=== PATIENT | male | born 1930 | race Caucasian/White ===

== ENCOUNTER 2019-02-22 22:26 | Emergency (ER) | payer MEDICARE, OTHER ==
[~2019-02-22 22:26] MED LIST: ISOVUE-370 76%-LOCM 1 ML ONE
[2019-02-22 22:50] LABS: Bilirubin Negative (Negative); Blood, Urine Large (Negative); Clarity CLOUDY (Clear); Glucose, Urine (Dipstick) Negative (Negative); Leukocyte Small (Negative); Nitrite Negative (Negative); Protein, Urine (Dipstick) 100 mg/dL (Neg-Trace); pH, Urine 5.5 (5.0-9.0)
[2019-02-22 22:51] LABS: #Basophils 0.1 thou/uL (0.0-0.2); #Eosinphils 0.3 thou/uL (0.0-0.7); #Lymphocytes 3.4 thou/uL (1.20-3.40); #Monocytes 0.7 thou/uL (0.11-0.59); #Neutrophils 3.9 thou/uL (1.40-6.50); %Basophils 1.2 % (0.0-1.0); %Eosinophils 3.1 % (0.0-10.0); %Lymphocytes 40.1 % (21.0-51.0); %Monocytes 8.8 % (0.0-10.0); %Neutrophils 46.8 % (42.0-75.0); Hemoglobin 11.8 g/dL (14.0-18.0); Mean Corpuscular HGB CONC 33.4 g/dL (32.0-36.0); Mean Corpuscular Hemoglobin 31.6 pg (27.0-31.0); Mean Corpuscular Volume 94.4 fL (78.0-98.0); Mean Platelet Volume 8.5 fL (7.4-10.4); Platelet Count 168 thou/uL (130-400); Red Blood Cell (RBC) Count 3.74 mill/uL (4.70-6.10); White Blood Cell (WBC) Count 8.4 thou/uL (4.8-10.8)
[2019-02-22 22:51] LABS: Bacteria/HPF None Seen HPF (None Seen); Hyaline Casts/LPF 4-6 HYALINE CAST LPF (0-3 Hyaline); Pathc Cast-AUWi Flag 1.07 (0-2.49); RBC/HPF GREATER THAN 50-TNTC HPF (0-3); Squamous Epithelial 0-3 HPF (0-3)
[2019-02-22 23:15] LABS: ALT (SGPT) 32 U/L (8-55); AST (SGOT) 32 U/L (5-34); Albumin 4.1 g/dL (3.4-4.8); Alkaline Phosphatase 55 U/L (40-150); Anion Gap 14 mmol/L (10-20); BUN (Urea Nitrogen) 33 mg/dL (8.4-25.7); Bilirubin, Total 0.7 mg/dL (0.2-1.2); Calc. Creatinine Clearance 0 mL/min (70-130); Calcium 9.7 mg/dL (7.8-10.44); Carbon Dioxide 27 mmol/L (23-31); Chloride 106 mmol/L (98-107); Estimated GFR-MDRD 49; Globulin 2.7 g/dL (2.4-3.5); Glucose 134 mg/dL (83-110); Potassium 3.8 mmol/L (3.5-5.1); Protein, Total 6.8 g/dL (5.8-8.1); Sodium 143 mmol/L (136-145)
--- NOTE | 2019-02-23 08:56 | CT ---
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 He reports he feels it has been increasing. PT reports lower abdominal discomfort and frequenc y. PT states he has a similar issue a few months ago but it self resolved TECHNIQUE: Imaging protocol: Axial computed tomography images of the abdomen and pelvis with intravenous contras t. Coronal reformatted images were created and reviewed. COMPARISON: No relevant prior studies available. FINDINGS: ABDOMEN: Liver: No solid mass. Gallbladder and bile ducts: No calcified stones. No ductal dilation. Pancreas: No acute pathology. No ductal dilation. Spleen: No solid mass. No splenomegaly. Adrenals: No mass. Kidneys and ureters: Mild right caliectasis secondary to 4 mm ureteropelvic junction stone. Mild left hydronephrosis secondary to 4 mm ureterovesicular junction stone. There is also 10 mm ureteropelvic junction stone on this side. Bilateral renal cortical scarring with 2.4 cm simple right renal cyst. Stomach and bowel: There is moderate colonic fecal retention. There is colonic diverticulosis without CT evidence for acute diverticulitis. Appendix: No evidence of appendicitis. PELVIS: Bladder: Unremarkable as visualized. Reproductive: Unremarkable as visualized. ABDOMEN and PELVIS: Intraperitoneal space: No free air. Bones/joints: Chronic degenerative spinal changes without acute fracture or dislocation. Soft tissues: Moderate, bilateral fat containing inguinal hernias. Vasculature: No abdominal aortic aneurysm. Lymph nodes: No enlarged lymph nodes. IMPRESSION: Mild left hydronephrosis due to ureterovesicular junction stone. Bilateral ureteropelvic junction stones. Fecal retention. Bilateral fat containing inguinal hernias. Thank you for allowing us to participate in the care of your patient. Dictated and Authenticated by: Arturo Stallworth MD 02/23/2019 2:30 AM Central Time ([place] & [place]) FINAL REPORT EMERGENCY AFTER HOURS CT ABDOMEN AND PELVIS: I agree with the preliminary report provided by [facility]. There is mild left hydronephrosis due to a left UVJ stone. There are bilateral stones seen at left an d right UPJs. There is right-sided renal cyst. There is bilateral nephrolithiasis. Other chronic find ings as above. POS: BH
== END 2019-02-23 02:54 | disposition home or self-care (01) ==
LOC: ERS 22:26
DX: N13.2 Hydronephrosis with renal and ureteral calculous obstruction (principal); E11.9 Type 2 diabetes mellitus without complications; E78.5 Hyperlipidemia, unspecified; I10 Essential (primary) hypertension; Z87.442 Personal history of urinary calculi; Z79.899 Other long term (current) drug therapy
CPT/HCPCS: 36415; 74177; 80053; 81003; 81015; 85025; 87086; Q9966

== ENCOUNTER 2019-03-11 11:45 | Emergency (ER) | payer MEDICARE, OTHER ==
[2019-03-11 12:54] LABS: #Basophils 0.1 thou/uL (0.0-0.2); #Eosinphils 0.1 thou/uL (0.0-0.7); #Lymphocytes 1.7 thou/uL (1.20-3.40); #Monocytes 0.7 thou/uL (0.11-0.59); #Neutrophils 9.3 thou/uL (1.40-6.50); %Basophils 0.6 % (0.0-1.0); %Eosinophils 0.6 % (0.0-10.0); %Lymphocytes 14.1 % (21.0-51.0); %Neutrophils 78.6 % (42.0-75.0); Hemoglobin 10.4 g/dL (14.0-18.0); Mean Corpuscular HGB CONC 33.1 g/dL (32.0-36.0); Mean Corpuscular Hemoglobin 31.3 pg (27.0-31.0); Mean Corpuscular Volume 94.6 fL (78.0-98.0); Mean Platelet Volume 7.9 fL (7.4-10.4); Platelet Count 172 thou/uL (130-400); RBC Distribution Width 12.6 % (11.5-14.5); Red Blood Cell (RBC) Count 3.33 mill/uL (4.70-6.10); White Blood Cell (WBC) Count 11.9 thou/uL (4.8-10.8)
[2019-03-11] MEDS ORDERED: Morphine 4 MG/ML VIAL ONE (13:03)
[2019-03-11] MEDS ORDERED: Ondansetron PF 4 MG/2 ML Vial ONE (13:03)
[2019-03-11 13:15] LABS: ALT (SGPT) 18 U/L (8-55); AST (SGOT) 20 U/L (5-34); Albumin 3.6 g/dL (3.4-4.8); Alkaline Phosphatase 52 U/L (40-150); Anion Gap 12 mmol/L (10-20); BUN (Urea Nitrogen) 47 mg/dL (8.4-25.7); Bilirubin, Total 0.7 mg/dL (0.2-1.2); Calc. Creatinine Clearance 0 mL/min (70-130); Calcium 9.3 mg/dL (7.8-10.44); Carbon Dioxide 25 mmol/L (23-31); Chloride 108 mmol/L (98-107); Estimated GFR-MDRD 39; Globulin 2.3 g/dL (2.4-3.5); Glucose 149 mg/dL (83-110); Lipase 47 U/L (8-78); Potassium 4.1 mmol/L (3.5-5.1); Protein, Total 5.9 g/dL (5.8-8.1); Sodium 141 mmol/L (136-145)
--- NOTE | 2019-03-11 13:44 | CT ---
CT abdomen and pelvis with IV contrast HISTORY: Abdominal pain. Renal stones. COMPARISON: 02/23/2019. FINDINGS: Mild bilateral and symmetric hydroureteronephrosis. Within the distal left ureter, a linear cluster of calcifications measures up to 0.4 cm diameter by 1.2 cm length of aggregate. The distended ureter around the calcifications is much greater diameter than the calcifications. Tiny nonobstructing calculus at the inferior pole of the right kidney. Small cluster of microcalcific ations within the posterior aspect of a left inferior pole calyx. Subtle stranding in the fat around the left kidney. Renal cysts are again demonstrated. Calcification within the arterial structures. No evidence of rosa l obstruction. IMPRESSION: Significant interval decrease in stone burden of the urinary tract. Mild bilateral hydrou reteronephrosis. A cluster of small calcifications within the distal left ureter as detailed above. Not currently appearing to be obstructive. The stranding around the left kidney, however, suggest tacos t there may be intermittent obstruction of the distal left ureter. Small nonobstructing bilateral renal calculi. Atherosclerosis. Other chronic-type findings are stable.
[2019-03-11] MEDS ORDERED: ISOVUE-370 76%-LOCM 1 ML ONE (16:11)
[2019-03-11 16:12] LABS: Bilirubin Negative (Negative); Blood, Urine Large (Negative); Clarity CLOUDY (Clear); Glucose, Urine (Dipstick) Negative (Negative); Leukocyte Moderate (Negative); Nitrite Negative (Negative); Protein, Urine (Dipstick) 100 mg/dL (Neg-Trace); Specific Gravity, Urine 1.026 (1.002-1.036); Urobilinogen 0.2 mg/dL (0.2-1.0)
[2019-03-11 16:15] LABS: Hyaline Casts/LPF 4-6 HYALINE CAST LPF (0-3 Hyaline); Pathc Cast-AUWi Flag 0.64 (0-2.49); Squamous Epithelial 0-3 HPF (0-3)
[2019-03-11 16:25] LABS: Yeast-AUWi Flag 237.4 (0-25.0)
[2019-03-11 16:32] LABS: Bacteria/HPF 1+ HPF (None Seen); Crystals/HPF None Seen HPF (Negative); RBC/HPF GREATER THAN 50-TNTC HPF (0-3); Yeast-All Forms Rare HPF (None Seen)
== END 2019-03-11 19:20 | disposition home or self-care (01) ==
LOC: ERS 11:45
DX: N13.2 Hydronephrosis with renal and ureteral calculous obstruction (principal); E11.9 Type 2 diabetes mellitus without complications; E78.5 Hyperlipidemia, unspecified; I10 Essential (primary) hypertension; Z79.899 Other long term (current) drug therapy; Z79.4 Long term (current) use of insulin
CPT/HCPCS: 36415; 74177; 80053; 81003; 81015; 83690; 85025; 96361; 96365; 96366; 96375; J1956; J2270; J2405; Q9966